=== PATIENT | female | born 1990 | race Two or more races ===

== ENCOUNTER 2023-05-01 16:15 | Emergency (ER) | payer OTHER ==
[~2023-05-01] VITALS: Ht 170.2 cm; Wt 54.4 kg
[2023-05-01] MEDS ORDERED: SUMATRIPTAN SUCCINATE 6 MG/0.5 ML VIAL SUBCUTANEO ONE (18:30)
[2023-05-01 19:06] LABS: HEMATOCRIT 34.9 % (36.0-45.00); HEMOGLOBIN 11.8 g/dL (12.0-15.00); MEAN CELL VOLUME 90.8 fL (80.00-100.00); MEAN CORPUSCULAR HEMOGLOBIN 30.6 pg (27.00-32.0); MEAN CORPUSCULAR HGB CONC 33.7 g/dl (32.0-36.0); PLATELET COUNT 277 K/uL (150-450); RED BLOOD COUNT 3.85 M/uL (4.00-6.00); RED CELL DISTRIBUTION WIDTH 14.6 % (11.5-14.5)
[2023-05-01 19:12] LABS: PH,URINE 6.5 (5.0-8.0); URINE APPEARANCE Clear; URINE BILIRRUBIN Negative (NEGATIVE); URINE BLOOD Large; URINE COLOR Yellow; URINE GLUCOSE Negative (NEGATIVE); URINE LEUKOCYTE Negative; URINE NITRATE Negative; URINE PROTEIN Negative (NEGATIVE)
[2023-05-01 19:15] LABS: URINE BACTERIA 282.2 uL (0.0-1933); URINE RBC 325.7 uL (0.0-20.8); URINE WBC 5.5 uL (0.0-23.2)
[2023-05-01 19:46] LABS: ALBUMIN 4.2 gm/dL (3.4-5.0); BILIRUBIN TOTAL 0.28 mg/dL (0.3-1.2); CREATININE SERUM 0.86 mg/dL (0.55-1.02); GFR 75.99; GLOBULINA 3.8 G/DL (2.4-3.5); POTASSIUM 3.98 mEq/L (3.5-5.1)
[2023-05-01] MEDS ORDERED: BUTALBIT-ACETA1 EACH PO (20:00)
== END 2023-05-01 20:57 | disposition home or self-care (01) ==
LOC: ER 16:16
PROVIDERS: General Practice
DX: R51.9 Headache, unspecified (principal); Z88.8 Allergy status to other drugs, medicaments and biological substances